=== PATIENT | female | born 2000 | race Caucasian/White ===

== ENCOUNTER 2020-07-03 01:20 | Emergency (ER) | payer OTHER ==
[~2020-07-03] VITALS: Ht 157.5 cm; Wt 53.5 kg
[2020-07-03 01:25] VITALS: BP 126/96
--- NOTE | 2020-07-03 01:35 | NUR ---
PT AMBULATED W/ STEADY GAIT TO ER BED # 4
--- NOTE | 2020-07-03 01:40 | NUR ---
DR. CHOWDARY AT BEDSIDE FOR MEDICAL EVALUATION.
[2020-07-03] MEDS ORDERED: ONDANSETRON 4 MG/2 ML VIAL IVP STA (01:41)
[2020-07-03] MEDS ORDERED: MORPHINE SULFATE 2 MG/ML SYR IVP STA (01:41)
[2020-07-03] MEDS ORDERED: NACL 0.9% 1,000 ML IV ONE (01:45)
--- NOTE | 2020-07-03 01:52 | NUR ---
CONSENT OBTAINED FOR CT WITH CONTRAST.
--- NOTE | 2020-07-03 01:55 | NUR ---
C/O RLQ ABD PAIN RADIATING TO RT FLANK X 2 HRS . PT TOOK IBUPROFEN X 3O MINS W/ NO RELIEF. ABD IS SOFT, FLAT, ACTIVE BS, RLQ PAIN TENDERNESS TO TOUCH. DENIES ANY V,D,ANY APPETITTE CHANGES, NO BLOOD IN URINE OR IN STOOL. LAST BM WAS 2 DAYS AGO AND PT STATES THIS IS ABNORMAL. +NAUSEA. 9/10 PAIN AND DESCRIBES IT BURNING. DENIES ANY DYSURIA. VSS. A&O X4. STEADY GAIT. PMH: NONE NKA
[2020-07-03 01:59] LABS: BASOPHILS # (AUTO) 0.1 K/uL (0.00-0.22); BASOPHILS % (AUTO) 0.9 % (0.0-2.0); EOSINOPHILS # (AUTO) 0.2 K/uL (0-0.4); EOSINOPHILS % (AUTO) 2.1 % (0.0-4.0); HEMATOCRIT 39.9 % (36-48); HEMOGLOBIN 13.7 g/dL (12.0-16.0); LYMPHOCYTES # (AUTO) 2.6 K/uL (2.5-16.5); LYMPHOCYTES % (AUTO) 34.7 % (20.5-51.1); MEAN CORPUSCULAR HEMOGLOBIN 30 pg (27-31); MEAN CORPUSCULAR HGB CONC 34 g/dL (33-37); MEAN CORPUSCULAR VOLUME 86.6 fL (80-94); MONOCYTES # (AUTO) 0.8 K/uL (0.8-1.0); MONOCYTES % (AUTO) 10.1 % (1.7-9.3); NEUTROPHILS % (AUTO) 52.2 % (42.2-75.2); PLATELET COUNT (AUTO) 276 K/uL (140-450); RED BLOOD CELL COUNT(AUTO) 4.61 MIL/uL (4.20-5.40); RED CELL DISTRIBUTION WIDTH 13.5 % (11.6-13.7); WHITE BLOOD COUNT (AUTO) 7.6 K/uL (4.5-11.0)
--- NOTE | 2020-07-03 02:04 | NUR ---
Jill caraballo in ED - 07/03/20 at 0206 by [facility] pt taken to ct via annie.
--- NOTE | 2020-07-03 02:06 | NUR ---
pt taken to ct via w/c.
[2020-07-03 02:13] LABS: ANION GAP 12.8 (8-16); CARBON DIOXIDE 26.9 mmol/L (21-32); CREATININE 0.8 mg/dL (0.6-1.3); POTASSIUM 3.7 mmol/L (3.5-5.1); TOTAL BILIRUBIN 0.3 mg/dL (0.0-1.0)
[2020-07-03 02:18] LABS: PROTHROMBIN TIME 10.4 secs (10.8-13.4)
--- NOTE | 2020-07-03 02:19 | NUR ---
pt returned from ct via w/c.
--- NOTE | 2020-07-03 04:18 | NUR ---
pt laying comfortably in bed. equal chest rise and fall. no distress noted. pain level decreased.
--- NOTE | 2020-07-03 04:43 | NUR ---
laura ellington speaking to pt and pts mother on pts results.
[2020-07-03 04:52] VITALS: BP 126/96
--- NOTE | 2020-07-03 04:52 | NUR ---
Patient discharged with v/s stable. Written and verbal after care instructions given and explained. Patient verbalized understanding. Ambulatory with steady gait. All questions addressed prior to discharge. Advised to follow up with PMD.
== END 2020-07-03 04:52 | disposition home or self-care (01) ==
LOC: MED 01:20
DX: N83.291 Other ovarian cyst, right side (principal)
CPT/HCPCS: 36415; 74177; 76856; 80053; 81025; 82150; 83690; 85025; 85610; 85730; 86886; 86900; 86901; 93976; 96361; 96374; 96375; 99285; J2270; J2405; J7030; Q0092; Q9967